=== PATIENT | female | born 1995 | race American Indian/Alaskan Native ===

== ENCOUNTER 2016-12-21 15:09 | Outpatient (CLI) | payer MEDICAID ==
--- NOTE | 2016-12-21 16:42 | Mammography Report ---
BILATERAL DIGITAL DIAGNOSTIC MAMMOGRAM with CAD and RIGHT BREAST ULTRASOUND: 12/21/16 15:09:00 CLINICAL: 21-year-old with a palpable right upper-outer breast lump. COMPARISON:None. FINDINGS: Ultrasound of the right breast was performed initially and demonstrated an oval heterogeneous solid palpable mass at 9 o'clock 5 cm from the nipple. It measures 2.5 x 1.4 x 1.9 cm. It is wider than tall but margins are irregular on antiradial views. An oval solid heterogeneous relatively smooth mass at 10 o'clock 4 cm from the nipple measures 1.4 x 0.9 x 1.5 cm. A solid oval relatively smooth heterogeneous hypoechoic mass at 9 o'clock 3 cm from the nipple measures 2.0 x 1.1 x 1.4 cm. Routine mammographic views demonstrate heterogeneously dense breast with vague asymmetric density in the upper-outer right breast. However, no distinct mass is identified. No architectural distortion or suspicious calcifications. IMPRESSION: Three solid right breast masses in the upper outer quadrant. The largest mass has a suspicious irregular margin on some views. Recommend ultrasound-guided needle core breast biopsy to confirm the density. The 2 other masses have morphologic features which are more typical of benign fibroadenomas and warrant ultrasound followup in six months. BI-RADS CATEGORY: 4--Suspicious RECOMMENDATION: Ultrasound guided needle biopsy of the 2.5 cm right breast mass at 9 o'clock 5 cm from the nipple. ACR BI-RADS MAMMOGRAPHIC CODES: 0 = Needs additional imaging evaluation; 1 = Negative; 2 = Benign; 3 = Probably benign; 4 = Suspicious; 5 = Malignant; 6 = Known biopsy-proven malignancy COMMENT: 1. Dense breast tissue, i.e., adenosis, fibrocystic changes, etc., may obscure an underlying neoplasm. 2. Approximately 10% of cancers are not detected with mammography. 3. A negative mammography report should not delay biopsy if a clinically suspicious mass is present. COMMENT: Patient follow-up letters are generated by our [employer] application.
== END 2016-12-21 15:10 | disposition home or self-care (01) ==
LOC: US 15:09
PROVIDERS: ATTEND Obstetrics & Gynecology
DX: N63.10 Unspecified lump in the right breast, unspecified quadrant (principal)
CPT/HCPCS: 76642; G0204; 77066

== ENCOUNTER 2016-12-26 13:07 | Outpatient (CLI) | payer MEDICAID ==
--- NOTE | 2016-12-26 15:38 | Ultrasound Report ---
ULTRASOUND GUIDED NEEDLE CORE BIOPSY RIGHT BREAST WITH CLIP PLACEMENT 2 SITES: 12/26/16 CLINICAL: 21-year-old with a palpable right breast lump and three right breast masses identified on recent ultrasound. She states that she stopped breast-feeding twelve months ago. COMPARISON :12/21/16 bilateral mammogram and right breast ultrasound FINDINGS: The procedure was explained to the patient and informed consent was obtained. Ultrasound demonstrated a heterogeneous hypoechoic irregular palpable mass at 9 o'clock approximately 6 cm from the nipple. The mass is nontender and has a component which extends to the dermis. However, there is no definite extension to the skin and no visible lesion on the skin. 2 additional masses of the right breast are identified and correlate with oval solid masses which are more smooth and have relative hypoechoic centers with a suggestion of a capsule. These are located at 10 o'clock 5 cm from the nipple and at 9 o'clock 3 cm from the nipple. I marked the breast with a felt tip marker and a time out was called. The skin was prepped with Betadine and anesthetized with 1% lidocaine. Needle core biopsy of the palpable mass at 9 o'clock 6 cm from the nipple was performed through a tiny dermatotomy using ultrasound guidance, 2% lidocaine with epinephrine for deep anesthesia and a 14-gauge Achieve biopsy device. 3 cores were obtained and placed in formalin. A clip was deployed within the mass. I then biopsied a second mass at 9 o'clock 3 cm from the nipple using 1% lidocaine for skin anesthesia and 2% lidocaine for deep anesthesia. A 14-gauge achieve biopsy device was used and three cores were obtained. A milky fluid leaked from the incision site and a milky nipple discharge was elicited at the same time of this biopsy. A clip was deployed within the mass. The patient tolerated the procedure well and there were no apparent complications. Hemostasis was achieved with minimal pressure and a sterile dressings were applied at both sites. A post procedure mammogram was not performed. She left the department in good condition and was given instructions for wound care and followup. IMPRESSION: Uncomplicated ultrasound guided needle core biopsy with clip placement at 2 sites right breast.
== END 2016-12-26 13:08 | disposition home or self-care (01) ==
LOC: SPVWC 13:07
PROVIDERS: ATTEND Obstetrics & Gynecology
DX: N61.1 Abscess of the breast and nipple (principal)
CPT/HCPCS: 88305

== ENCOUNTER 2017-01-11 15:15 | Outpatient (CLI) | payer MEDICAID | END 2017-01-11 15:16 | disposition home or self-care (01) | LOC: LABHHL 15:15 | PROVIDERS: ATTEND Surgery | DX: N61.1 Abscess of the breast and nipple (principal) | CPT/HCPCS: 87075; 87116 ==

== ENCOUNTER 2017-01-25 15:19 | Outpatient (CLI) | payer MEDICAID | END 2017-01-25 15:20 | disposition home or self-care (01) | LOC: LABHHL 15:19 | PROVIDERS: ATTEND Surgery | DX: N61.1 Abscess of the breast and nipple (principal) | CPT/HCPCS: 87075; 87116 ==

== ENCOUNTER 2017-06-27 08:14 | Outpatient (CLI) | payer MEDICAID ==
--- NOTE | 2017-06-28 09:00 | Ultrasound Report ---
BILATERAL BREAST ULTRASOUND: 06/27/17 08:14:00 CLINICAL: 21 year-old with with chronic bilateral mastitis with abscesses. Ultrasound guided needle biopsy of 2 right breast masses at 9 o'clock 6 cm from the nipple and at 9:30 o'clock 3 cm from the nipple on 12/26/16 were positive for acute mastitis and abscess and she had a needle aspiration/biopsy at 2 o'clock in the left breast on 04/13/[address] Ohara which demonstrated similar pathology with mixed inflammation and abscess. She now describes a painful palpable mass in the right breast at 11 o'clock 7 cm from the nipple as well as a left breast lump. COMPARISON: 12/21/16 bilateral mammogram and right breast ultrasound. FINDINGS: Ultrasound of the right breast demonstrated an irregular hypoechoic heterogeneous solid mass with angular margins at 11 o'clock 7 cm from the nipple. It measures 3.0 x 1.7 x 1.3 cm and corresponds to the palpable tender mass the 3 cm portion of the mass is contiguous to the skin. An oval heterogeneous hypoechoic solid mass at 12 o'clock 8 cm from the nipple measures 1.7 x 1.4 x 1.7 cm. A more superficial mass at the same o'clock position measures 0.5 x 0.8 x 0.6 cm. An irregular heterogeneous hypoechoic mass at 12 o'clock 7 cm from the nipple is contiguous to the skin and measures 1.6 x 1.2 x 0.9 cm. A mass at 12 o'clock 4 cm from the nipple is contiguous to the skin and measures 1.3 x 1.2 x 0.9 cm. The subareolar mass at 9 o'clock contains a biopsy clip and measures 0.6 x 0.6 cm. An irregular hypoechoic mass at 10 o'clock 9 cm from the nipple measures 1.9 x 1.8 x 1.9 cm. Several additional smaller hypoechoic masses are identified. Ultrasound left breast demonstrated a round irregular hypoechoic lesion at 3 o'clock 12 cm from the nipple measuring 0.8 x 0.7 cm. It contains a biopsy clip and appears to correlate with previous biopsy site. A subareolar mass at 3 o'clock is relatively anechoic with low level internal echoes and measures 2.2 x 1.1 x 2.0 cm. IMPRESSION: 1. Numerous probably benign masses of the right breast with a dominant palpable mass at 11 o'clock 7 cm from the nipple. All the lesions have morphology suggestive of inflammatory masses or abscesses. 2. A 2.2 cm relatively anechoic left subareolar mass or cyst. BI-RADS 3 - - Probably Benign RECOMMENDATION: Three-month followup lateral breast ultrasound to reevaluate breast masses after additional antibiotic therapy.
== END 2017-06-27 08:15 | disposition home or self-care (01) ==
LOC: SPVWC 08:14
PROVIDERS: ATTEND Surgery
DX: N63.11 Unspecified lump in the right breast, upper outer quadrant (principal); N63.21 Unspecified lump in the left breast, upper outer quadrant